=== PATIENT | male | born 2000 | race American Indian/Alaskan Native ===

== ENCOUNTER 2022-07-30 18:06 | Emergency (ER) | payer BC, OTHER ==
[2022-07-30] MEDS ORDERED: Sodium Chloride 0.9% 10 ML Syringe FLUSH PRN (18:16)
[2022-07-30 18:24] VITALS: BP 124/71; PULSE 64
[2022-07-30 19:16] LABS: PTT,PARTIAL THROMBOPLSTIN TIME 26.3 SEC (22.0-34.0)
[2022-07-30 19:18] LABS: ANION GAP 14.5 mEq/L (7-13); CHLORIDE,CL 102 mmol/L (98-107); SODIUM,NA 139 mmol/L (136-145)
[2022-07-30 19:21] LABS: ESTIMATED GFR 121 mL/min (>=60)
[2022-07-30 19:41] LABS: CORONAVIRUS COVID-19 NAA NEGATIVE (NEGATIVE)
== END 2022-07-30 19:06 | disposition home or self-care (01) ==
LOC: DL.ED 18:06
DX: M79.602 Pain in left arm (principal); R79.89 Other specified abnormal findings of blood chemistry; Z20.822 Contact with and (suspected) exposure to COVID-19
CPT/HCPCS: 0240U; 36415; 80053; 83605; 84145; 85025; 85379; 85610; 85730; 86140; 87040; 99284; J3490

== ENCOUNTER 2025-06-21 10:24 | Emergency (ER) | payer BC, OTHER ==
[2025-06-21] MEDS: Diphtheria,Pertussis(Acell),Tetanus Vaccine 0.5 ML Syringe IM ONE (11:24)
[2025-06-21 11:37] VITALS: BP 127/73; PULSE 88
== END 2025-06-21 11:51 | disposition home or self-care (01) ==
LOC: DL.ED 10:24
DX: S69.92XA Unspecified injury of left wrist, hand and finger(s), initial encounter (principal); Z23 Encounter for immunization; W29.4XXA Contact with nail gun, initial encounter; Y93.89 Activity, other specified
CPT/HCPCS: 73120-LT; 90471; 99283-25